=== PATIENT | female | born 1995 | race Caucasian/White ===

== ENCOUNTER 2020-05-28 09:17 | Day surgery (SDC) | payer BC ==
[2020-05-27 14:12] VITALS: BMI 19.8
[2020-05-28 11:02] VITALS: PULSE 90; TEMP 98
[2020-05-28 11:20] VITALS: BP 99/61
== END 2020-05-28 11:21 | disposition home or self-care (01) ==
LOC: FASU-ENDO 09:17
PROVIDERS: ATTEND Internal Medicine Gastroenterology
PROC: 0DBL8ZZ Excision of Transverse Colon, Via Natural or Artificial Opening Endoscopic (ICD-10-PCS; 2020-05-28)
PROC: 0DBP8ZX Excision of Rectum, Via Natural or Artificial Opening Endoscopic, Diagnostic (ICD-10-PCS; 2020-05-28)
PROC: 0DBM8ZX Excision of Descending Colon, Via Natural or Artificial Opening Endoscopic, Diagnostic (ICD-10-PCS; 2020-05-28)
PROC: 0DBK8ZX Excision of Ascending Colon, Via Natural or Artificial Opening Endoscopic, Diagnostic (ICD-10-PCS; principal; 2020-05-28 10:31)
DX: R19.4 Change in bowel habit (principal); K63.89 Other specified diseases of intestine; K64.0 First degree hemorrhoids
CPT/HCPCS: 84703; 88305-TC